=== PATIENT | female | born 1955 | race Caucasian/White ===

== ENCOUNTER 2022-08-29 03:26 | Inpatient (IN) ==
[2022-08-29] MEDS ORDERED: Ipratropium/Albuterol Neb 3 ML IH ONE (03:38)
[2022-08-29] MEDS ORDERED: Iopamidol - 370 500 ML MLS IVP ONE (03:38)
[2022-08-29] MEDS ORDERED: cefTRIAXone 1,000 MG in 0.9 % Sodium Chloride 10 ML IVP ONE (03:38)
[2022-08-29] MEDS ORDERED: methylPREDNISolone 125 MG/2 ML VIAL IVP ONE (03:38)
[2022-08-29] MEDS ORDERED: Aspirin 81 MG TAB.CHEW PO ONE (03:39)
[2022-08-29 03:42] LABS: ABG Base Excess -3 mEq/L (-2 to 3); ABG HCO3 23 mEq/L (21-27); ABG Oxygen Saturation 90 % (95-98); ABG PCO2 43 mmHg (35-45); ABG PH 7.35 pH Units (7.32-7.45); ABG PO2 62 mmHg (85-104); ABG TCO2 25 mEq/L (20-26)
[2022-08-29] MEDS ORDERED: Furosemide 40 MG/4 ML VIAL IVP ONE (03:49)
[2022-08-29 03:50] LABS: Basophils % 0.2 %; Eosinophils # 0.1 K/mcL (0.0-0.6); Eosinophils % 0.3 %; Hematocrit 44.6 % (35.3-44.9); Hemoglobin 14.3 g/dL (11.5-15.4); Immature Granulocytes % 0.5 % (0-4); Lymphocytes # 1.2 K/mcL (0.6-4.6); Mean Corpuscular HGB Conc 32.1 g/dL (31.6-35.5); Mean Corpuscular Hemoglobin 31.8 pg (28.0-33.3); Mean Corpuscular Volume 99.1 fL (83.0-100.0); Mean Platelet Volume 9.5 fL (9.4-12.4); Monocytes # 0.8 K/mcL (0.0-1.3); Monocytes % 4.7 %; Neutrophils # 15.3 K/mcL (1.6-8.9); Platelet Count 327 K/mcL (140-400); Red Cell Distribution Width 13.8 % (11.5-14.5); Segmented Neutrophils % 87.3 %; White Blood Count 17.5 K/mcL (4.3-11.1)
[2022-08-29 03:58] LABS: INR 1.1; Prothrombin Time 12.4 Seconds (9.4-12.1)
[2022-08-29 04:00] LABS: Activated Partial Thrombo Time 30.3 Seconds (26.0-36.0)
[2022-08-29 04:28] LABS: Alanine Aminotransferase 10 Units/L (7-52); Albumin 3.8 g/dL (3.5-5.7); Albumin/Globulin Ratio 1.1 (1.1-2.2); Alkaline Phosphatase 110 Units/L (34-104); Aspartate Amino Transferase 48 Units/L (13-39); BUN/Creatinine Ratio 20 (6-26); Bilirubin,Direct 0.1 mg/dL (0.0-0.2); Bilirubin,Indirect 0.3 mg/dL (0.0-1.0); Bilirubin,Total 0.4 mg/dL (0.3-1.0); Blood Urea Nitrogen 13 mg/dL (8-23); Carbon Dioxide 23 mEq/L (23-29); Chloride 100 mEq/L (98-107); Globulin 3.6 g/dL (2.4-3.5); Glucose 199 mg/dL (70-105); Osmolality,Calculated 284 (280-300); Potassium 3.6 mEq/L (3.5-5.1); Sodium 134 mEq/L (136-145); Total Protein 7.4 g/dL (6.4-8.9); Troponin I 5.44 ng/mL (< 0.04)
[2022-08-29] MEDS ORDERED: *HR* Heparin 5,000 UNIT/ML VIAL IVP PRN ×2 (04:39)
[2022-08-29] MEDS ORDERED: *HR* Heparin 5,000 UNIT/ML VIAL IVP ONE (04:39)
[2022-08-29] MEDS ORDERED: Heparin 25,000UNIT/250ML 1/2NS 25,000 UNIT/250 ML IV.SOLN IVC SCH (04:45)
[2022-08-29] MEDS ORDERED: Naloxone 0.4 MG/ML INJ IVP PRN (04:54)
[2022-08-29] MEDS ORDERED: Melatonin 3 MG TABLET PO PRN (04:54)
[2022-08-29] MEDS ORDERED: Ondansetron ODT 4 MG TAB.RAPDIS SL PRN (05:00)
[2022-08-29] MEDS ORDERED: Furosemide 240 MG in 0.9 % Sodium Chloride 96 ML IVC SCH (05:00)
[2022-08-29] MEDS ORDERED: *HR* Metoprolol 5 MG/5 ML VIAL IVP PRN (05:05)
[2022-08-29 05:08] LABS: Adenovirus Not Detected (Not Detect); Bordetella Pertussis Not Detected (Not Detect); Chlamydophila pneumoniae Not Detected (Not Detect); Coronavirus 229E Not Detected (Not Detect); Coronavirus HKU1 Not Detected (Not Detect); Coronavirus NL63 Not Detected (Not Detect); Coronavirus OC43 Not Detected (Not Detect); Human Metapneumovirus Not Detected (Not Detect); Human Rhinovirus/Enterovirus Not Detected (Not Detect); Influenza A Subtype 2009 H1 Not Detected (Not Detect); Influenza B Not Detected (Not Detect); Mycoplasma pneumoniae Not Detected (Not Detect); Parainfluenza Virus 1 Not Detected (Not Detect); Parainfluenza Virus 2 Not Detected (Not Detect); Parainfluenza Virus 3 Not Detected (Not Detect); Parainfluenza Virus 4 Not Detected (Not Detect); Respiratory Syncytial Virus Not Detected (Not Detect); SARS-CoV-2 Not Detected (Not Detect)
[2022-08-29] MEDS: carvediloL 6.25 MG TABLET PO SCH ×2 (05:17→18:06)
[2022-08-29] MEDS ORDERED: Levalbuterol Neb 1.25 MG/3 ML IH PRN (05:51)
[2022-08-29] MEDS ORDERED: Ipratropium Neb 0.5 MG NEBULIZER IH PRN (05:52)
[2022-08-29] MEDS: Nystatin POWDER 30 GM BOTTLE TP SCH ×4 (10:34→20:05)
[2022-08-29] MEDS: Artificial Tears SOLN 15 ML BOTTLE BOTH EYES SCH ×4 (10:34→20:06)
[2022-08-29] MEDS ORDERED: Nitroglycerin 1,000 MCG/5 ML VIAL IV ONE (11:10)
[2022-08-29] MEDS ORDERED: *HR* Heparin 10,000 UNIT/10 ML VIAL ONE (11:10)
[2022-08-29] MEDS ORDERED: 0.9 % Sodium Chloride 2,000 ML ONE (11:10)
[2022-08-29] MEDS ORDERED: Iopamidol - 370 200 ML INFUS..BTL ONE (11:10)
[2022-08-29] MEDS ORDERED: Heparin 1,000 UNITS/500 mL 500 ML ONE (11:10)
[2022-08-29] MEDS ORDERED: *HR* Midazolam HCl 2 MG/2 ML VIAL ONE ×2 (12:42→13:15)
[2022-08-29] MEDS ORDERED: *HR* FentaNYL (PF) 100 MCG/2 ML VIAL ONE (12:42)
[2022-08-29] MEDS: Doxycycline 100 MG in 0.9 % Sodium Chloride Mini Bag 100 ML IVPB SCH ×2 (14:14→18:05)
[2022-08-29] MEDS: *HR* OxyCODONE/APAP 5/325 TABLET PO PRN ×2 (14:32→20:05)
[2022-08-30] MEDS: *HR* OxyCODONE/APAP 5/325 TABLET PO PRN ×6 (00:15→22:26)
[2022-08-30] MEDS ORDERED: CefTRIAXone 1,000 MG VIAL ONE (04:59)
[2022-08-30] MEDS: cefTRIAXone 1,000 MG in Water for inj. (sterile) 10 ML IVP SCH (05:08)
[2022-08-30] MEDS: Doxycycline 100 MG in 0.9 % Sodium Chloride Mini Bag 100 ML IVPB SCH ×2 (05:10→18:19)
[2022-08-30 07:26] LABS: Hematocrit 37.3 % (35.3-44.9); Platelet Count 295 K/mcL (140-400)
[2022-08-30 07:33] LABS: Basophils % 0.3 %; Eosinophils # 0.1 K/mcL (0.0-0.6); Eosinophils % 0.6 %; Immature Granulocytes % 0.4 % (0-4); Lymphocytes # 1.7 K/mcL (0.6-4.6); Lymphocytes % 16.6 %; Mean Corpuscular HGB Conc 32.4 g/dL (31.6-35.5); Mean Corpuscular Hemoglobin 31.9 pg (28.0-33.3); Mean Corpuscular Volume 98.4 fL (83.0-100.0); Mean Platelet Volume 9.8 fL (9.4-12.4); Monocytes # 0.7 K/mcL (0.0-1.3); Monocytes % 7.3 %; Neutrophils # 7.6 K/mcL (1.6-8.9); Red Blood Count 3.82 M/mcL (3.82-4.97); Segmented Neutrophils % 74.8 %; White Blood Count 10.2 K/mcL (4.3-11.1)
[2022-08-30 08:37] LABS: BUN/Creatinine Ratio 24 (6-26); Blood Urea Nitrogen 14 mg/dL (8-23); Calcium 8.9 mg/dL (8.6-10.3); Carbon Dioxide 30 mEq/L (23-29); Chloride 98 mEq/L (98-107); Glucose 111 mg/dL (70-105); Osmolality,Calculated 281 (280-300); Potassium 3.8 mEq/L (3.5-5.1); Sodium 135 mEq/L (136-145)
[2022-08-30 08:39] LABS: Alanine Aminotransferase 15 Units/L (7-52); Albumin 3.4 g/dL (3.5-5.7); Albumin/Globulin Ratio 1.1 (1.1-2.2); Alkaline Phosphatase 84 Units/L (34-104); Aspartate Amino Transferase 69 Units/L (13-39); BUN/Creatinine Ratio 24 (6-26); Bilirubin,Total 0.4 mg/dL (0.3-1.0); Blood Urea Nitrogen 14 mg/dL (8-23); Calcium 8.8 mg/dL (8.6-10.3); Carbon Dioxide 31 mEq/L (23-29); Chloride 99 mEq/L (98-107); Globulin 3.2 g/dL (2.4-3.5); Glucose 111 mg/dL (70-105); Osmolality,Calculated 281 (280-300); Potassium 3.8 mEq/L (3.5-5.1); Sodium 135 mEq/L (136-145); Total Protein 6.6 g/dL (6.4-8.9)
[2022-08-30] MEDS: Aspirin 81 MG TAB.CHEW PO SCH (10:16)
[2022-08-30] MEDS: carvediloL 6.25 MG TABLET PO SCH ×2 (10:16→18:19)
[2022-08-30] MEDS: Artificial Tears SOLN 15 ML BOTTLE BOTH EYES SCH ×4 (10:17→21:35)
[2022-08-30] MEDS: Nystatin POWDER 30 GM BOTTLE TP SCH ×3 (10:17→18:19)
[2022-08-30] MEDS ORDERED: Furosemide 20 MG/2 ML VIAL IVP ONE (14:43)
[2022-08-31] MEDS: *HR* OxyCODONE/APAP 5/325 TABLET PO PRN ×3 (03:48→12:07)
[2022-08-31] MEDS: cefTRIAXone 1,000 MG in Water for inj. (sterile) 10 ML IVP SCH (03:48)
[2022-08-31] MEDS: Doxycycline 100 MG in 0.9 % Sodium Chloride Mini Bag 100 ML IVPB SCH (06:07)
[2022-08-31 07:37] VITALS: BP 141/87; PULSE 93; TEMP 97.5; O2SAT 99
[2022-08-31] MEDS: Artificial Tears SOLN 15 ML BOTTLE BOTH EYES SCH ×2 (08:15→12:07)
[2022-08-31] MEDS: Nystatin POWDER 30 GM BOTTLE TP SCH (08:15)
[2022-08-31] MEDS: carvediloL 6.25 MG TABLET PO SCH (08:15)
[2022-08-31] MEDS: Aspirin 81 MG TAB.CHEW PO SCH (08:15)
[2022-08-31] MEDS ORDERED: Isosorbide MONOnitrate (24 HR) 30 MG TAB.ER.24H PO SCH (09:00)
== END 2022-08-31 01:50 | disposition home or self-care (01) | DRG 246 ==
LOC: EMEROOARM 03:26 → 3NENU 03:26
PROVIDERS: ADMIT Internal Medicine; ATTEND Internal Medicine